=== PATIENT | male | born 1995 | race Caucasian/White ===

== ENCOUNTER 2020-12-31 08:24 | Outpatient (REF) | payer OTHER, SELFPAY ==
[2020-12-31 14:25] LABS: CT PCR NOT DETECTED (Not Detect.); NG PCR NOT DETECTED (Not Detect.)
[2021-01-01 08:57] LABS: Syphilis Screen Nonreactive (Nonreactive)
[2021-01-01 09:15] LABS: HBS Num1 0.32 mIU/mL (0-7.99); HIV AB/AG Nonreactive (Nonreactive); HIV Num 1 0.06 S/CO (0.00-0.99); Hepatitis A Antibody IgM 0.25 Index (0-0.79); ~Hepatitis A Antibody IgM Nonreactive (Nonreactive); ~Hepatitis B Surface Antibody NONREACTIVE (Nonreactive)
[2021-01-01 09:53] LABS: HBc Num1 0.07 S/CO (0.00-0.79); HBsAGNum1 0.43 S/CO (0.00-0.99); Hepatitis B Core Antibody Nonreactive (Nonreactive); Hepatitis B Surface Antigen Negative (Negative); ~HepC Num1 0.05 S/CO (0.00-0.79); ~Hepatitis C Antibody Nonreactive (Nonreactive)
[2021-01-02 02:12] LABS: Herpes Simplex Type 1 IgG <0.90 index; Herpes Simplex Type 2 IgG <0.90 index
== END 2020-12-31 08:25 | disposition home or self-care (01) ==
LOC: HO.LAB 08:24
PROVIDERS: Visit Provider Nurse Practitioner Family
DX: Z11.3 Encounter for screening for infections with a predominantly sexual mode of transmission (principal); Z11.59 Encounter for screening for other viral diseases
CPT/HCPCS: 36415; 86695; 86696; 86704; 86706; 86709; 86780; 86803; 87340; 87389; 87491; 87591

== ENCOUNTER 2020-12-31 09:43 | Outpatient (REF) | payer OTHER, SELFPAY | END 2020-12-31 09:44 | disposition home or self-care (01) | LOC: HO.HMGCLDS 09:43 | PROVIDERS: PCP Hospitalist; Visit Provider Nurse Practitioner Family | DX: Z13.89 Encounter for screening for other disorder (principal) ==